=== PATIENT | female | born 1945 | race Caucasian/White ===

== ENCOUNTER 2023-12-27 06:17 | Day surgery (SDC) | payer MEDICARE, OTHER, SELFPAY ==
[2023-12-27 09:46] VITALS: BMI 39.1
[2023-12-27 09:48] VITALS: BP 133/68
[2023-12-27 09:50] VITALS: BMI 39.1
[2023-12-27] MEDS: CELEBREX 200 MG PO (09:56)
[2023-12-27] MEDS: TYLENOL 1000 MG PO (09:56)
[2023-12-27 10:30] VITALS: BP 148/76
[2023-12-27 10:45] VITALS: BP 147/68
== END 2023-12-27 11:00 | disposition home or self-care (01) ==
LOC: SDS 06:17
PROVIDERS: ATTENDING PHYSICIAN Orthopaedic Surgery Hand Surgery
DX: G56.01 Carpal tunnel syndrome, right upper limb (principal)
CPT/HCPCS: 64721